=== PATIENT | female | born 1960 | race Caucasian/White ===

== ENCOUNTER 2018-08-28 07:16 | Day surgery (SDC) | payer BC ==
[~2018-08-28] VITALS: Ht 152.4 cm; Wt 79.5 kg
[2018-08-28] MEDS ORDERED: metformin (08:23)
[2018-08-28] MEDS ORDERED: aspirin (08:23)
[2018-08-28] MEDS ORDERED: simvastatin (08:23)
[2018-08-28] MEDS ORDERED: lisinopril (08:23)
[2018-08-28] MEDS ORDERED: insulin (08:23)
[2018-08-28 08:25] VITALS: Ht 152.4 cm; Wt 79.5 kg
[2018-08-28] MEDS ORDERED: ONDANSETRON 4 MG INJ IV PRN (09:00)
--- NOTE | 2018-08-28 09:00 | PREAC ---
Date/Time of Note Date/Time of Note DATE: 08/28/18 TIME: 08:59 Anesthesia Eval and Record Evaluation Time Pre-Procedure Interview DATE: 08/28/18 TIME: 08:59 Age 57 Sex female NPO: 8 hrs Preoperative diagnosis screening Planned procedure colonoscopy Past Medical History Past Medical History: Includes Endo: Diabetes Heme: Other (leukemia, s/p BM transplanrt) Surgery & Anesthesia Issues No known issue Meds Anticoagulation: No Beta Marley within 24 hr: No Reason Beta Marley not given: Pt. not on B-Marley Reported Medications [aspirin] No Conflict Check 08/28/18 [metformin] No Conflict Check 08/28/18 [simvastatin] No Conflict Check 08/28/18 [insulin] No Conflict Check 08/28/18 [lisinopril] No Conflict Check 08/28/18 Meds reviewed: Yes Allergies Coded Allergies: metoclopramide (Verified Allergy, Unknown, 08/28/18) Allergies Reviewed: Yes Labs/Studies Labs Reviewed: Reviewed by anesthesiologist test: N/A Studies: ECG (n/a), CXR (n/a) Pre-procedure Exam Airway: Adequate mouth opening Mallampati: Mallampati I Teeth: Normal Lung: Normal Heart: Normal ASA Physical Status ASA physical status: 2 Emergency: None Planned Anesthetic General/MAC: MAC Planned Pain Management Parenteral pain med Pre-operative Attestations Prior to commencing anesthesia and surgery, the patient was re-evaluated, there was verification of: *The patient's identity *The results of appropriate recent lab work and preoperative vital signs *The above evaluation not changing prior to induction *Anesthetic plan, risk benefits, alternative and complications discussed with patient/family; questions answered; patient/family understands, accepts and wishes to proceed. DENITA KNAPP MD Aug 28, 2018 09:00
[2018-08-28] MEDS ORDERED: PROPOFOL 20 ML ONE (09:01)
[2018-08-28] MEDS ORDERED: FENTAnyl 50 MCG/ML VIAL ONE (09:01)
[2018-08-28 09:02] VITALS: BP 157/80; PULSE 70; RESP 18
[2018-08-28 09:57] VITALS: BP 120/72; PULSE 60; RESP 20
--- NOTE | 2018-08-28 17:31 | PAC ---
Date/Time of Note Date/Time of Note DATE: 08/28/18 TIME: 17:31 Post-Anesthesia Notes Post-Anesthesia Note Last documented vital signs Vital Signs Date Temp Pulse Resp B/P (MAP) Pulse Ox O2 O2 Flow FiO2 Time Delivery Rate 08/28/18 98 60 20 120/72 96 Room Air 09:57 (88) 08/28/18 97.3 09:02 Activity: WNL Respiratory function: WNL Cardiovascular function: WNL Mental status: Baseline Pain reasonably controlled: Yes Hydration appropriate: Yes Nausea/Vomiting absent: No DENITA KNAPP MD Aug 28, 2018 17:31
== END 2018-08-28 12:41 | disposition home or self-care (01) ==
LOC: GIL 07:16
PROVIDERS: ATTEND Internal Medicine Gastroenterology
DX: Z12.11 Encounter for screening for malignant neoplasm of colon (principal); K57.30 Diverticulosis of large intestine without perforation or abscess without bleeding; K64.8 Other hemorrhoids; D12.6 Benign neoplasm of colon, unspecified; E11.9 Type 2 diabetes mellitus without complications
CPT/HCPCS: 45380; 82962; 88305; J3010; Z7610; 88341; 88342